=== PATIENT | male | born 1955 | race Hispanic/Latino ===

== ENCOUNTER 2016-09-26 12:17 | Day surgery (SDC) | payer MEDICARE ==
[2016-07-09 06:07] VITALS: BMI 19.6
[2016-09-26 13:00] LABS: BASO % 0.8 % (0.0-2.0); EOS % 0.2 % (0.0-4.0); HEMATOCRIT 38.4 % (35.0-51.0); LYMPH # 1.5 K/uL (1.0-4.3); LYMPH % 25.4 % (20.0-40.0); MEAN CELL VOLUME 91.1 fL (80.0-94.0); MEAN PLATELET VOLUME 7.7 fL (7.2-11.7); MONO # 0.3 K/uL (0.0-0.8); MONO % 5.6 % (0.0-10.0); RED CELL DISTRIBUTION WIDTH 12.8 % (11.5-14.5); WHITE BLOOD COUNT 5.8 K/uL (4.8-10.8)
[2016-09-26 13:08] LABS: CHLORIDE 98 mmol/L (98-107); POTASSIUM 4.1 mmol/L (3.6-5.2); SODIUM 137 mmol/L (132-148)
[2016-09-26 13:11] LABS: BLOOD UREA NITROGEN 16 mg/dL (9-20); CALCIUM 8.8 mg/dl (8.6-10.4); CARBON DIOXIDE 31 mmol/L (22-30); GFR AFRICAN-AMERICAN > 60; GLUCOSE,RANDOM 90 mg/dL (75-110)
[2016-09-26] MEDS ORDERED: Lidocaine 2% Jelly (Uro-Jet) ONE (14:09)
[2016-09-26] MEDS ORDERED: cefTRIAXone IV 1 gm in Dextros 50 ML IVPB ONE (14:09)
[2016-09-26] MEDS ORDERED: Iohexol 240 (50 ml) ONE (14:09)
[2016-09-26] MEDS ORDERED: Lactated Ringer's 1,000 ML IV ONE (14:20)
[2016-09-26] MEDS ORDERED: Propofol 10 mg/ml Inj (20 ML) ONE (14:21)
[2016-09-26] MEDS ORDERED: Midazolam 2 MG/2 ML VIAL ONE (14:21)
[2016-09-26] MEDS ORDERED: HYDROmorphone 0.5 mg/0.5 ml ISec IVP PRN (14:51)
[2016-09-26] MEDS ORDERED: Acetaminophen-Codeine 300/30 mg Tab PO PRN (15:08)
[2016-09-26 16:42] VITALS: O2SAT 100
[2016-09-26 18:29] VITALS: BP 112/68; PULSE 80; RESP 20; TEMP 97.8
--- NOTE | 2016-09-27 09:19 | RAD ---
PROCEDURE: HISTORY: BLADDER CA COMPARISON: 01/04/2016 TECHNIQUE: Retrograde urography was performed by Dr. 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 No central pelvocaliceal dilatation. The ureters are segmentally opacified. Portions opacified are negative for filling defects or abnormal caliber Cystoscope in place with minimal contrast in bladder (limited evaluation here) -history of bladder cancer IMPRESSION: No filling defects. -findings as above. Please see full report by Dr. Birmingham
--- NOTE | 2016-09-27 18:35 | CARD ---
APPROVED REPORT EKG Measurement Heart [id number] <Conclusion> Normal sinus rhythm Possible Left atrial enlargement Borderline ECG
--- NOTE | 2016-10-09 14:15 | DS ---
See the history and physical and the operative note. These were dictated as separate notes. This is a discharge note. A very pleasant gentleman. He has a history of bladder cancer. No recurrence right now. He underwent a procedure today and he is being discharged home. He was in stable condition. There w ere some issues regarding the ride. He came without any kind of transportation and there are other i ssues about escorts and all that. From a urology standpoint, the patient is requesting to be discharged home and just leave the [facility]. I discussed the risks, I discussed the recommendations, anesthesia guidelines, etc., but he still jus t wants to leave the hospital. We tried arranging for transportation, etc., but at this point, we are going to discharge him, so thi s is a discharge note. He is in stable condition. PLAN: The patient will call me later. I will keep in touch with him. And also, he will have routine followup. We will try to make the system more efficient for the patient for the future, see if his daughter is available, see if there is other transportation available. See if there is hospital transportation, but at this point, it is getting late in the night and befor e it gets dark, the patient is really requesting to go home. He seems to be stable. Vital signs are stable, so I discussed with him the possibility, my recommendation actually is just to follow protoc ol and have him sleep in the hospital and then to send him home, either tonight later when his daught er can pick him up, or tomorrow. What the patient said is that he does not want to stay and his daughter is not available before 1 a.m . and he does not want to go home then, so we are going to allow him to go home. This is a discharge note in this regard. Franco Birmingham MD cc: [id number] TT: 10/09/2016 14:14:34 en
--- NOTE | 2016-10-09 18:37 | OP ---
PROCEDURE DATE: 09/26/2016 PREOPERATIVE DIAGNOSES: Hematuria and history of bladder cancer. POSTOPERATIVE DIAGNOSES: Hematuria and history of bladder cancer, but no evidence of recurrence. PROCEDURE: Cystoscopy, bilateral retrograde pyelograms. COMPLICATIONS: There were no complications. INDICATIONS: See history and physical for the details. A very pleasant gentleman here for the above procedure. FINDINGS: 1. Normal anterior urethra with no strictures. 2. The veru is visually occlusive by 3 cm. 3. There is no bladder cancer identified. 4. Normal upper tracts. Films are submitted to radiologist. COMPLICATIONS: No complications. INDICATIONS: See history and physical. This is a very pleasant gentleman here for the above procedu re. We discussed options, risks, benefits and alternatives. He is here now for cysto and retrograde pyelogram. We did discuss office procedures, but for various reasons the patient prefers here . DESCRIPTION OF PROCEDURE: After obtaining informed consent, placed the patient on the table, routine monitors placed and timeouts were called. We confirmed the patient. We did everything with the Yammer n air brush decorator. We have the system. This is all documented elsewhere. Our procedure continues with the following: The cystoscope via the urethra, anterior urethra no stri cture and the veru is visually occlusive, about 2-3 cm. Ureteral orifices were identified and retrog rade pyelogram was performed. Films are submitted for the radiologist, but were essentially within n ormal limits. The bladder was inspected with 30 and 70 degree lens. No bladder tumors or cancer recurrence, etc. We further examined the patient's and seems to be okay. The bladder . The patient tolerated the procedure without complication. Franco Birmingham MD cc: [id number] TT: 10/09/2016 18:36:41 jax
== END 2016-09-26 18:32 | disposition home or self-care (01) ==
LOC: C.SDS 12:17
PROVIDERS: ATTEND Urology
DX: C67.9 Malignant neoplasm of bladder, unspecified (principal)
CPT/HCPCS: 36415; 52005; 74420; 80048; 85025; J0696; J7120

== ENCOUNTER 2017-05-22 14:36 | Day surgery (SDC) | payer MEDICARE ==
[2017-05-22 14:37] VITALS: BMI 19.5
[2017-05-22 15:12] LABS: BASO % 0.7 % (0.0-2.0); EOS % 0.6 % (0.0-4.0); HEMOGLOBIN 13.3 g/dL (12.0-18.0); LYMPH # 1.8 K/uL (1.0-4.3); LYMPH % 29.3 % (20.0-40.0); MEAN CELL VOLUME 92.9 fL (80.0-94.0); MEAN CORPUSCULAR HGB CONC 34.5 g/dL (33.0-37.0); MEAN PLATELET VOLUME 7.8 fL (7.2-11.7); MONO # 0.4 K/uL (0.0-0.8); MONO % 5.9 % (0.0-10.0); NEUT # 3.9 K/uL (1.8-7.0); NEUT % 63.5 % (50.0-75.0); RBC 4.17 Mil/uL (4.40-5.90); RED CELL DISTRIBUTION WIDTH 12.5 % (11.5-14.5); WHITE BLOOD COUNT 6.2 K/uL (4.8-10.8)
[2017-05-22 15:22] LABS: BLOOD UREA NITROGEN 17 mg/dL (9-20); CALCIUM 8.6 mg/dl (8.6-10.4); GFR AFRICAN-AMERICAN > 60; GFR NON-AFRICAN AMERICAN > 60
[2017-05-22] MEDS ORDERED: Lactated Ringer's 1,000 ML IV ONE (17:50)
[2017-05-22] MEDS ORDERED: Iohexol 240 (50 ml) ONE (17:51)
[2017-05-22] MEDS ORDERED: cefTRIAXone IV 1 gm in Dextros 50 ML IVPB ONE (17:51)
[2017-05-22] MEDS ORDERED: Propofol 10 mg/ml Inj (20 ML) ONE (17:53)
[2017-05-22] MEDS ORDERED: HYDROmorphone 0.5 mg/0.5 ml ISec IVP PRN (18:00)
[2017-05-22] MEDS ORDERED: Oxycodone/Acetaminophen 5/325 mg Tab PO PRN (18:03)
[2017-05-22 20:57] VITALS: BP 100/57; PULSE 71; RESP 16; TEMP 98; O2SAT 100
--- NOTE | 2017-05-23 13:55 | RAD ---
PROCEDURE: HISTORY: As above COMPARISON: None TECHNIQUE: Total fluoroscopic time utilized during the procedure: 1.9 seconds. Total dose 0.28435 mGy cm squared FINDINGS: Submitted images from the current procedure: 3 Please refer to the physician's notes performing the procedure. Contrast within non distended bilateral pelvocaliceal systems and ureters. Ureters are segmentally visualized - little contrast in the bladder. IMPRESSION: Less than 1 hour fluoroscopic time utilized during performance of the procedure
--- NOTE | 2017-05-23 13:58 | RAD ---
HISTORY: HEMATURIA COMPARISON: Fluoroscopic images FINDINGS: BOWEL: Stool retention.. No obstruction. No free air. BONES: Mild hypertrophic right and lesser left L4-5 facet arthrosis OTHER FINDINGS: Right hemipelvic less than 5 mm calcifications and left hemipelvic less than 5 mm calcification- phleboliths favored. No distal ureteral calculi associated with obstructive hydroureter IMPRESSION: Stool retention. Lateral hemipelvic calcifications right greater than left ; phleboliths favored. Correlate clinically
--- NOTE | 2017-05-24 23:10 | CARD ---
APPROVED REPORT EKG Measurement Heart [id number] <Conclusion> Sinus bradycardia Early repolarization Otherwise normal ECG
--- NOTE | 2017-07-24 14:32 | OP ---
PROCEDURE DATE: 05/22/2017 PREOPERATIVE DIAGNOSES: Hematuria, history of transitional cell carcinoma of the bladder. POSTOPERATIVE DIAGNOSES: Hematuria, history of transitional cell carcinoma of the bladder, and no recurrence today. PROCEDURES: Cystoscopy, bilateral retrograde pyelogram. SURGEON: Franco Birmingham MD COMPLICATIONS: There were no complications. BLOOD LOSS: Less than 10 mL. INDICATIONS: See history and physical for further details. A very pleasant gentleman who had history of transitional cell carcinoma of the bladder, here for followup. he has had no major complaints and he is here for the above testing. PAST MEDICAL AND SURGICAL HISTORY: As listed. OPERATIVE FINDINGS: 1. Normal anterior urethra. No strictures on reviewing and it was visually occlusive about 2 to 3 cm. 2. Normal ureters. 3. No bladder tumors located. 4. Upper tracts look normal. DESCRIPTION OF PROCEDURE: After obtaining informed consent, the patient was placed on the table. Routine monitors were placed. Time-out was called to confirm the patient positioning. Antibiotic prophylactics were used. We introduced cystoscope via urethra. Anterior urethra is normal under direct vision. No strictures. I noted some urine in his prostatic verumontanum and is about 2 to 3 cm. The ureter was identified. Retrograde pyelogram was performed bilaterally. No obvious filling defects. Films were submitted to the radiologist. Bladder is end-stage, removed. The patient tolerated this without complications. Rectal exam prostate, soft and smooth prostate, all normal. Franco Birmingham MD
--- NOTE | 2017-07-25 07:09 | HP ---
REASON FOR ADMISSION: Workup of hematuria. HISTORY OF PRESENT ILLNESS: Mr. Thompson is a very pleasant gentleman who has history of transitional cell carcinoma. Of late, he had recurrence. He is here today for cystoscopic evaluation. PAST MEDICAL AND SURGICAL HISTORY: No other changes. No history of DE or CVA. SOCIAL HISTORY: Socially, of note, he is legally deaf. 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 REVIEW OF SYSTEMS: No weight loss, chest pain, shortness of breath, or the like, essentially negative. PHYSICAL EXAMINATION: GENERAL: He is a well-nourished male, in no apparent distress. VITAL SIGNS: Within normal limits, included in the chart. LUNGS: Clear. ABDOMEN: Overall soft, nontender. No flank mass appreciated. GENITOURINARY: Normal male phallus without discharge. No testicular masses. RECTAL: 20 to 30 gm prostate, soft and smooth. LABORATORY DATA: See chart. DIAGNOSES: 1. History of bladder cancer. 2. Hematuria. 3. Mild voiding dysfunction. PLAN: This is a 69-year-old gentleman with no history. Today, we are evaluating for any recurrence of his cancer. The plan is as follows: We will give, 1. Antibiotic prophylaxis. 2. Cystoscopy. 3. . 4. Possible biopsy fulguration depending on what we find clinically. Risks and benefits were discussed at length. We used a utility bill complaints investigator. We used the translation system for Anthony I believe with the camera. All that is documented on the chart. Franco Birmingham MD
== END 2017-05-22 21:40 | disposition home or self-care (01) ==
LOC: C.SDS 14:36
PROVIDERS: ATTEND Urology
DX: R31.9 Hematuria, unspecified (principal); Z85.51 Personal history of malignant neoplasm of bladder
CPT/HCPCS: 36415; 52005; 74018; 80048; 85025; 93005; C1758; J0696; J2704; J7120; Q9966

== ENCOUNTER 2017-08-11 12:26 | Emergency (ER) | payer MEDICARE ==
[2017-08-11 12:27] VITALS: BMI 19.5
--- NOTE | 2017-08-11 13:41 | C.PDOC ---
History Of Present Illness 62-year-old male with a PMHx of bladder cancer, presents today with generalized weakness, subjective fever, and chills. No vomiting, diarrhea, URI symptoms or other complaints at this time. Data Keyer was used to communicate with patient via sign language. 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) History/Exam Limitations: no limitations Onset/Duration Of Symptoms: Days (x1) Current Symptoms Are (Timing): Still Present Associated Symptoms: Fever, Chills Past Medical History Reviewed: Historical Data, Nursing Documentation, Vital Signs Vital Signs: Last Vital Signs Temp 98 F 08/11/17 15:19 Pulse 67 08/11/17 15:19 Resp 20 08/11/17 15:19 BP 120/71 08/11/17 15:19 Pulse Ox 97 08/11/17 15:19 - Medical History PMH: Benign Prostatic Hyperplasia (s/p TURP), Colonic Polyps, Malignancy ( Bladder) Denies: Chronic Kidney Disease Surgical History: - [facility] Procedures COLONOSCOPY (10/01/14) INSERT INDWELLING CATH (10/29/14) TU DESTRUC BLADD LES NEC (12/14/14) VACCINATION NEC (10/27/14) Family History: States: Unknown Family Hx - Social History Hx Tobacco Use: Yes (cigars) Hx Alcohol Use: No Hx Substance Use: No - Immunization History Hx Tetanus Toxoid Vaccination: No Hx Influenza Vaccination: Yes Hx Pneumococcal Vaccination: No Review Of Systems Except As Marked, All Systems Reviewed And Found Negative. Constitutional: Positive for: Fever, Chills, Weakness ENT: Negative for: Nose Congestion, Throat Pain Respiratory: Negative for: Cough, Shortness of Breath Gastrointestinal: Negative for: Vomiting, Diarrhea Physical Exam - Physical Exam Appears: Non-toxic, No Acute Distress Skin: Normal Color, Warm, Dry, No Rash Head: Atraumatic, Normacephalic Eye(s): bilateral: Normal Inspection, PERRL, EOMI Nose: Normal Oral Mucosa: Moist Neck: Normal ROM, Supple Chest: Symmetrical Cardiovascular: Rhythm Regular, No Murmur Respiratory: Normal Breath Sounds, No Accessory Muscle Use, No Rales, No Rhonchi , No Wheezing Gastrointestinal/Abdominal: Soft, No Tenderness, No Guarding, No Rebound Back: Normal Inspection, No CVA Tenderness, No Vertebral Tenderness Extremity: Bilateral: Atraumatic, Normal Color And Temperature, Normal ROM Neurological/Psych: Oriented x3, Normal Speech ED Course And Treatment - Laboratory Results Result Diagrams: 08/11/17 13:57 08/11/17 13:57 O2 Sat by Pulse Oximetry: 98 (RA) Pulse Ox Interpretation: Normal Medical Decision Making Medical Decision Making: Impression: 62 y/o M with subjective fever, chills, and generalized weakness Time: 13:18 Plan: --CMP --CBC --PTT --PT --flu swab --urinalysis --chest x-ray --Tylenol 975 mg PO --Reevaluation pt reassesed slepeing in er in nad. no leukoctyosis, afebrile, cxr uriner neg. advise outpt fu and return precautions Disposition - Disposition Referrals: [facility] [Outside] [facility] [Outside] [facility] [Outside] Disposition: HOME/ ROUTINE Disposition Time: 03:00 Condition: STABLE Additional Instructions: please follow up with your doctor. return to er with worsening symptoms or concerns. Instructions: Viral Syndrome (DC) Forms: [employer] (Portuguese) - Clinical Impression Clinical Impression: Viral syndrome - Scribe Statement The provider has reviewed the documentation as recorded by the Scribe (Dalila Edwards) Provider Attestation: All medical record entries made by the Scribe were at my direction and personally dictated by me. I have reviewed the chart and agree that the record accurately reflects my personal performance of the history, physical exam, medical decision making, and the department course for this patient. I have also personally directed, reviewed, and agree with the discharge instructions and disposition.
--- NOTE | 2017-08-11 13:54 | RAD ---
HISTORY: COMPARISON: 07/09/2016. TECHNIQUE: Chest PA and lateral FINDINGS: LINES AND TUBES: None. LUNG AND PLEURA: The lungs are hyperinflated and there is peribronchial thickening with chronic changes in both lungs. No focal consolidation. There are scattered small calcified granulomas in both lungs. HEART AND MEDIASTINUM: The heart is not enlarged. The hilar and mediastinal contours are within normal limits. SKELETAL STRUCTURES: The bony structures are within normal limits for the patient's age. VISUALIZED UPPER ABDOMEN: Normal. OTHER FINDINGS: None. IMPRESSION: No active pulmonary disease. COPD.
[2017-08-11 14:01] LABS: HEMOGLOBIN 13.1 g/dL (12.0-18.0); MEAN CELL VOLUME 91.6 fL (80.0-94.0); MEAN CORPUSCULAR HGB CONC 34.9 g/dL (33.0-37.0); MEAN PLATELET VOLUME 7.7 fL (7.2-11.7); RBC 4.08 Mil/uL (4.40-5.90); RED CELL DISTRIBUTION WIDTH 12.8 % (11.5-14.5); WHITE BLOOD COUNT 5.2 K/uL (4.8-10.8)
[2017-08-11 14:18] LABS: INR 0.9; PROTHROMBIN TIME 10.1 SECONDS (9.7-12.2)
[2017-08-11 14:21] LABS: ALB/GLOB RATIO 1.3 (1.0-2.1); ALBUMIN 4.2 g/dL (3.5-5.0); ALT/SGPT 15 U/L (21-72); AST/SGOT 29 U/L (17-59); BLOOD UREA NITROGEN 16 mg/dL (9-20); CALCIUM 8.8 mg/dl (8.6-10.4); GFR AFRICAN-AMERICAN > 60; GFR NON-AFRICAN AMERICAN > 60
[2017-08-11 14:48] LABS: URINE BACTERIA RARE (<OCC); URINE BILIRUBIN NEGATIVE (NEGATIVE); URINE BLOOD NEGATIVE (NEGATIVE); URINE CLARITY Clear (Clear); URINE COLOR Straw (YELLOW); URINE GLUCOSE (UA) NORMAL (Normal); URINE LEUKOCYTE ESTERASE NEG Leu/uL (Negative); URINE PROTEIN NEGATIVE (NEGATIVE); URINE UROBILINOGEN NORMAL mg/dL (0.2-1.0)
[2017-08-11 15:20] VITALS: BP 120/71; PULSE 67; RESP 20; TEMP 98
[2017-08-11 15:53] VITALS: O2SAT 98
== END 2017-08-11 15:26 | disposition home or self-care (01) ==
LOC: C.ER 12:26
DX: B34.9 Viral infection, unspecified (principal); Z85.51 Personal history of malignant neoplasm of bladder

== ENCOUNTER 2018-02-15 08:40 | Day surgery (SDC) | payer MEDICARE ==
[2018-02-13 10:49] VITALS: BMI 20.2
[2018-02-15] MEDS ORDERED: Lidocaine 2% Jelly (Uro-Jet) ONE (10:39)
[2018-02-15] MEDS ORDERED: Iohexol 240 (50 ml) ONE (10:39)
[2018-02-15] MEDS ORDERED: cefTRIAXone 1 gm 1 GM/100 ML BAG IVPB ONE (10:39)
[2018-02-15] MEDS ORDERED: Propofol 10 mg/ml Inj (20 ML) ONE (10:43)
[2018-02-15] MEDS ORDERED: Oxycodone/Acetaminophen 5/325 mg Tab PO PRN (11:30)
[2018-02-15 12:25] VITALS: O2SAT 100
--- NOTE | 2018-02-15 12:41 | RAD ---
Date of service: 02/15/2018 PROCEDURE: HISTORY: HEMATURIA COMPARISON: Abdomen 05/22/2017 TECHNIQUE: Two images FINDINGS: Chopper Operator image: 3 right hemipelvic phleboliths noted. Left and right colonic stool renewed it. Degenerative changes of the inferior lumbar spine reproduced. Second image show cystoscopy tube in place with contrast segmentally opacifying non dilated ureters and unremarkable appearing pelvocaliceal systems. IMPRESSION: No pelvocaliceal system filling defects. The left ureter is not dilated and more completely opacified than the right. Of those portions segmentally opacified on the right no gross ureteral pathology noted. The right hemipelvic calcifications are believe likely extrinsic to the distal right ureter no proximal suggested obstruction suggested.
[2018-02-15 14:45] VITALS: BP 136/68; PULSE 68; RESP 18; TEMP 97.8
--- NOTE | 2018-03-05 06:53 | OP ---
PROCEDURE DATE: 02/15/2018 PREOPERATIVE DIAGNOSES: Hematuria, voiding dysfunction, and history of bladder cancer. POSTOPERATIVE DIAGNOSES: Hematuria, voiding dysfunction, and history of bladder cancer. PROCEDURE: Cystoscopy and bilateral retrograde pyelogram. COMPLICATIONS: None. INDICATIONS: See history and physical for the details. This is a very pleasant gentleman, who has a history of bladder cancer. We had previously resected. Of late, he has had no recurrences. He is here now for the above listed procedure. Risk, benefits, and treatment were explained to the patient at length. Blood loss is less than 10 mL. There were no complications. Urology operative findings; 1. Normal anterior urethra. No strictures. . 2. Verumontanum visually occlusive, normal for age, 2 to 3 cm. 3. Ureteral orifice was also identified, clear efflux on both sides. 4. Bilateral retrograde pyelogram was performed. 5. Films were submitted for the radiologist to read, but there is no obvious abnormality detected. There were no complications. DESCRIPTION OF PROCEDURE: After obtaining the informed consent, the patient was placed on the table. Routine monitors were placed. Time-out was called. We confirmed patient and positioning. We introduced the cystoscope via the urethra, anterior urethra is normal. No stricture. Verumontanum is visually occlusive, 2 to 3 cm. Ureteral orifice was identified. Retrograde pyelogram was performed, clear efflux; and both kidneys are identified. At this point, the bladder was emptied, and the cystoscope was removed. The patient tolerated the procedure well without any complications. ADDENDUM: moving but he is wanting to come back to me for followup care. I explained to him some of the difficultly with this. We are going to plan to continue to follow the patient and have him reach out . Franco Birmingham MD
== END 2018-02-15 13:30 | disposition home or self-care (01) ==
LOC: C.SDS 08:40
PROVIDERS: ATTEND Urology
DX: R31.29 Other microscopic hematuria (principal); Z85.51 Personal history of malignant neoplasm of bladder
CPT/HCPCS: 52005; 74420; C1758; J0696

== ENCOUNTER 2018-07-29 00:13 | Emergency (ER) | payer MEDICARE ==
[2018-07-29 00:13] VITALS: BMI 20.2
[2018-07-29 00:51] VITALS: BP 132/78
--- NOTE | 2018-07-29 01:17 | C.PDOC ---
History Of Present Illness 63 year old deaf male presents with sore throat and fever for the past 2-3 days. He has not tried taking any medication, has only tried drinking tea with honey. Denies other complaints. Time Seen by Provider: 07/29/18 01:13 Chief Complaint (Nursing): Flu-like Symptoms History Per: Patient History/Exam Limitations: physical impairment (Deaf) Onset/Duration Of Symptoms: Days (2-3) Current Symptoms Are (Timing): Still Present Location Of Pain: Throat Sick Contacts (Context): None Associated Symptoms: Fever, Sore Throat Ear Symptoms: Bilateral: None Recent travel outside of the [place]: No Past Medical History Reviewed: Historical Data, Nursing Documentation, Vital Signs Vital Signs: Last Vital Signs Temp 101.2 F H 07/29/18 00:57 Pulse 102 H 07/29/18 00:46 Resp 18 07/29/18 00:46 BP 132/78 07/29/18 00:46 Pulse Ox 99 07/29/18 00:46 - Medical History PMH: Benign Prostatic Hyperplasia (s/p TURP), Colonic Polyps, Malignancy (Bladder) Surgical History: - [facility] Procedures COLONOSCOPY (10/01/14) INSERT INDWELLING CATH (10/29/14) TU DESTRUC BLADD LES NEC (12/14/14) VACCINATION NEC (10/27/14) Family History: States: Unknown Family Hx - Social History Hx Tobacco Use: Yes (cigars) Hx Alcohol Use: Yes Hx Substance Use: No - Immunization History Hx Tetanus Toxoid Vaccination: No Hx Influenza Vaccination: Yes Hx Pneumococcal Vaccination: Yes Review Of Systems Constitutional: Positive for: Fever. Negative for: Chills ENT: Positive for: Throat Pain. Negative for: Mouth Swelling Respiratory: Negative for: Cough, Shortness of Breath Physical Exam - Physical Exam Appears: Non-toxic, No Acute Distress Skin: Normal Color, Warm Head: Atraumatic, Normacephalic Eye(s): bilateral: Normal Inspection Ear(s): Bilateral: Normal Nose: Normal Oral Mucosa: Moist Throat: Exudate (Tonsillar) Neck: Normal, Supple Neurological/Psych: Oriented x3, Normal Speech, Normal Cranial Nerves (Grossly intact) ED Course And Treatment O2 Sat by Pulse Oximetry: 99 (Room air) Pulse Ox Interpretation: Normal Medical Decision Making Medical Decision Making: Patient with tonsilitis, will dc with amoxicillin and to fu with primary. Disposition Counseled Patient/Family Regarding: Diagnosis, Need For Followup, Rx Given - Disposition Referrals: Non [facility] Provider, [Primary Care Provider] - Disposition: HOME/ ROUTINE Disposition Time: 01:15 Condition: STABLE Prescriptions: Amoxicillin 500 mg PO TID #21 tablet Ibuprofen [Motrin Tab] 800 mg PO TID PRN #21 tab PRN Reason: Pain, Moderate (4-7) Instructions: Sore Throat, Adult (DC) Forms: [employer] (Venezuelan), General Discharge Instructions - Clinical Impression Clinical Impression: Acute tonsillitis - PA / ELECTRICAL CONTROLS ASSEMBLER / Resident Statement MD/DO has reviewed & agrees with the documentation as recorded. - Scribe Statement The provider has reviewed the documentation as recorded by the Scribherminia Saez All medical record entries made by the Loganibherminia were at my direction and personally dictated by me. I have reviewed the chart and agree that the record accurately reflects my personal performance of the history, physical exam, medical decision making, and the department course for this patient. I have also personally directed, reviewed, and agree with the discharge instructions and disposition.
[2018-07-29 01:32] VITALS: PULSE 103; RESP 16; TEMP 101
[2018-07-29 02:43] VITALS: O2SAT 99
== END 2018-07-29 01:35 | disposition home or self-care (01) ==
LOC: C.ER 00:13 → SUPCPDRO 00:13 → C.ER 01:35
DX: J03.90 Acute tonsillitis, unspecified (principal)

== ENCOUNTER 2018-08-06 11:17 | Outpatient (CLI) | payer MEDICARE | END 2018-08-06 11:18 | disposition home or self-care (01) | LOC: C.PAT 11:17 ==

== ENCOUNTER 2018-08-07 12:15 | Day surgery (SDC) | payer MEDICARE ==
[2018-08-06 11:39] VITALS: BMI 19.5
[2018-08-07] MEDS ORDERED: cefTRIAXone 1 gm 1 GM/100 ML BAG IVPB ONE (14:21)
[2018-08-07] MEDS ORDERED: Lidocaine 2% Jelly (Uro-Jet) ONE (14:22)
[2018-08-07] MEDS ORDERED: Propofol 10 mg/ml Inj (20 ML) ONE (14:32)
[2018-08-07] MEDS ORDERED: Midazolam 2 MG/2 ML VIAL ONE (14:32)
[2018-08-07] MEDS ORDERED: Oxycodone/Acetaminophen 5/325 mg Tab PO PRN (14:39)
[2018-08-07] MEDS ORDERED: Lactated Ringer's 1,000 ML IV ONE (15:00)
[2018-08-07] MEDS ORDERED: HYDROmorphone 0.5 mg/0.5 ml ISec IVP PRN (15:02)
[2018-08-07 15:28] VITALS: TEMP 99.5
[2018-08-07 15:32] VITALS: BP 108/67; PULSE 49; RESP 17; O2SAT 98
--- NOTE | 2018-08-08 02:20 | HP ---
UROLOGY ADMISSION HISTORY AND PHYSICAL REASON FOR ADMISSION: History of bladder cancer. HISTORY OF PRESENT ILLNESS: A very pleasant gentleman. He is here today for his surveillance cystoscopy, 63-year-old. He has actually recently moved to [place]. He lives with his daughter and his grand daughter, she is about 10 months now. But he is here because he has a followup cystoscopy. We have made these arrangements by phone. He has a history of bladder cancer. He is not able to make it to all the appointments. We discussed that. We discussed even getting urologist out there in [place]. He lives somewhere near [place], [place], but prefer to stay with me. So, we discussed options, and he is here today for a cystoscopy, possible biopsy, possible retrograde, depending on what we find clinically. PAST MEDICAL AND SURGICAL HISTORY: As listed on the chart. No other interim changes. REVIEW OF SYSTEMS: No weight loss, chest pain, shortness of breath, otherwise. No night sweats. Noncontributory. SOCIAL HISTORY: Socially, again he has now become a grandfather for about 10 months. He lives with his daughter up in [place], [place]. PHYSICAL EXAMINATION: GENERAL: Well developed, well nourished male, in no apparent distress. VITAL SIGNS: Within normal limits. LUNGS: Clear. ABDOMEN: Overall soft. Nontender. No flank mass appreciated. GENITOURINARY: Normal male phallus without discharge. No testicular mass. RECTAL EXAM: A 30 g prostate, soft and smooth. LABORATORY DATA: See chart. DIAGNOSES: History of bladder cancer and intermittent bouts of hematuria but nothing recently. ASSESSMENT AND PLAN: In summary, an extremely pleasant 63-year-old gentleman who is very pleasant to talk with. We talked redipper multiple times. We made these arrangements. The patient is not living here, but he wants to prefer to get treated once he has been coming to me. So, the plan is as follows: 1. Cystoscopy. 2. Possible biopsy. 3. Possible retrograde, depending of what we find clinically. ADDENDUM: I will also use antibiotic prophylaxis. We found actually some abnormal mucosa. We did a biopsy. It looks like its just going to be red erythema, but it does not look the beginnings of a TCC, but we did do a biopsy anyway today. Essentially everything else seems to be relatively normal, especially given some of his complaints. Franco Birmingham MD
--- NOTE | 2018-08-08 02:56 | OP ---
PROCEDURE DATE: 08/07/2018 PREOPERATIVE DIAGNOSES: Hematuria, history of bladder cancer. POSTOPERATIVE DIAGNOSIS: Rule out recurrent bladder cancer. PROCEDURE: Cystoscopy, bladder biopsy, and fulguration. COMPLICATIONS: There were no complications. BLOOD LOSS: Less than 10 mL. FINDINGS: 1. Normal anterior urethra. No strictures. 2. The verumontanum is visually occlusive, fairly big for his age, 2-3 cm in size. 3. There is a lesion along the posterior wall. We did a biopsy fulguration. 4. Clear efflux noted. Otherwise, there is some scar tissue from previous biopsies and previous TURP, but, no other abnormalities are detected and we inspected it very carefully. We got a good look. DESCRIPTION OF PROCEDURE: After obtaining informed consent, the patient was placed on the table. Routine monitor placed. Time-out was called to confirm the patient and positioning. I want to mention that we did the whole thing with a foot and ankle surgeon. The patient was in lithotomy position. Cystoscope was introduced via the urethra. No strictures were detected. Normal anterior urethra. The verumontanum was visually occlusive by 3 cm in length. Now, we identified the bladder, we inspected it carefully with both the 3-degree and 7-degree lens. There were no bladder lesions per say anteriorly or posteriorly, but then we noted on the bladder wall after inspecting, there is a little area of erythema. I took multiple pictures of that, one area is concerning after doing it. We then did a biopsy of that area and then inspected further. Just rule out it could easily be seen. We did a biopsy. We fulgurated. It was completely dry after that. The patient tolerated the procedure without complications. We will see what that pathology shows and make further plans depending on that pathology. If there is any then we are going to be a little more aggressive here. Because he is only coming in once a year, previously we have not seen anything that looked like this. Today is a little concerning. We will see what this pathology shows. There were no complications. NAME OF THE PROCEDURE: Cystoscopy, bladder biopsy, and fulguration. Franco Birmingham MD
== END 2018-08-07 17:17 | disposition home or self-care (01) ==
LOC: C.SDS 12:15
PROVIDERS: ATTEND Urology
DX: R31.9 Hematuria, unspecified (principal)
CPT/HCPCS: 52204; 88305; J0696; J7120